=== PATIENT | male | born 1970 | race African-American/Black ===

== ENCOUNTER 2019-10-09 18:01 | Emergency (ER) | payer MEDICAID ==
[~2019-10-09] VITALS: Ht 182.9 cm; Wt 70.3 kg
[2019-10-09] MEDS ORDERED: MAG HYDROX/AL HYDROX/SIMETH 30 ML UDC ONE (18:58)
[2019-10-09] MEDS ORDERED: LIDOCAINE VISCOUS 2% UD 15 ML UDC ONE (18:58)
[2019-10-09] MEDS ORDERED: MAG HYDROX/AL HYDROX/SIMETH 30 ML UDC PO ONE (19:00)
[2019-10-09] MEDS ORDERED: LIDOCAINE VISCOUS 2% UD 15 ML UDC MM ONE (19:00)
--- NOTE | 2019-10-09 19:02 | NUR ---
PT AAOX4. BIBSELF C/O SOB SINCE 9:30 AM. 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 PT NANCY ANY CP, RR EVEN AND UNLABORED, NO ACUTE DISTRESS NOTED. WILL CONTINUE TO MONITOR.
[2019-10-09 19:10] LABS: BASOPHILS # (AUTO) 0.1 /CMM (0.0-0.2); BASOPHILS % (AUTO) 0.8 % (0.0-2.0); EOSINOPHILS % (AUTO) 1.2 % (0.0-6.0); HEMATOCRIT 44 % (39-51); HEMOGLOBIN 14.6 g/dL (13.5-17.5); LYMPHOCYTES # (AUTO) 1.3 /CMM (0.8-4.8); MEAN CORPUSCULAR HGB CONC 34 g/dl (31.0-36.0); MEAN CORPUSCULAR VOLUME 103 fL (80-96); MONOCYTES # (AUTO) 0.5 /CMM (0.1-1.30); MONOCYTES % (AUTO) 8.1 % (2.0-12.0); NEUTROPHILS # (AUTO) 4.6 /CMM (1.8-8.9); NEUTROPHILS % (AUTO) 69.9 % (43.0-81.0); PLATELET COUNT (AUTO) 238 /CMM (150-450); RED BLOOD CELL COUNT(AUTO) 4.22 MIL/uL (4.5-6.0); WHITE BLOOD COUNT (AUTO) 6.6 K/uL (4.3-11.0)
--- NOTE | 2019-10-09 19:12 | NUR ---
STRIPPER BLACK AND WHITE AT BEDSIDE FOR LABS
[2019-10-09 19:19] LABS: CARBON DIOXIDE 29 mmol/L (21-32); CHLORIDE 105 mmol/L (98-107); CREATININE 0.7 mg/dL (0.6-1.3); GLUCOSE 95 mg/dL (74-106); POTASSIUM 4.3 mmol/L (3.5-5.1); SODIUM SERUM 142 mmol/L (136-145); UREA NITROGEN, BLOOD 14 mg/dL (7-18)
[2019-10-09 19:24] LABS: CALCIUM, SERUM 9.4 mg/dL (8.5-10.1)
--- NOTE | 2019-10-09 19:48 | NUR ---
PER PA, WILL REPEAT TROP AT 2200.
--- NOTE | 2019-10-09 23:01 | NUR ---
IV removed. Catheter intact and site benign. Pressure and 4x4 applied to site. No bleeding noted.
[2019-10-09 23:05] VITALS: BP 128/72
--- NOTE | 2019-10-09 23:05 | NUR ---
Patient discharged to home in stable condition. Written and verbal after care instructions given. Patient verbalizes understanding of instruction. Pt ambulated with steady gait. vss.
== END 2019-10-09 23:07 | disposition home or self-care (01) ==
LOC: ER 18:06
DX: K29.70 Gastritis, unspecified, without bleeding (principal); Z20.828 Contact with and (suspected) exposure to other viral communicable diseases; R07.9 Chest pain, unspecified; Z87.19 Personal history of other diseases of the digestive system; R94.31 Abnormal electrocardiogram [ECG] [EKG]; R06.02 Shortness of breath
CPT/HCPCS: 36415; 71045; 80048; 84484 ×2; 85025; 85378; 93005 ×2; 99285; C9803; U0003

== ENCOUNTER 2020-02-02 15:33 | Emergency (ER) | payer MEDICAID ==
[~2020-02-02] VITALS: Ht 182.9 cm; Wt 66.7 kg
[2020-02-02 16:00] VITALS: BP 120/89
--- NOTE | 2020-02-02 16:28 | NUR ---
Patient discharged to home in stable condition. Written and verbal after care instructions given. Patient verbalizes understanding of instruction. Pt ambulatory with a steady gait
--- NOTE | 2020-02-02 16:28 | NUR ---
Marleni newton in EDM - 02/02/20 at 1628 by JOSE Patient discharged to home in stable condition. Written and verbal after care instructions given. Patient verbalizes understanding of instruction.(pt. name) ambulatory with a steady gait
== END 2020-02-02 16:39 | disposition home or self-care (01) ==
LOC: ER 15:48
DX: H66.92 Otitis media, unspecified, left ear (principal)

== ENCOUNTER 2020-11-04 23:48 | Emergency (ER) | payer OTHER ==
[~2020-11-04] VITALS: Ht 182.9 cm; Wt 70.3 kg
[2020-11-05 01:56] VITALS: BP 125/72
--- NOTE | 2020-11-05 01:56 | NUR ---
Patient discharged to home in stable condition. Written and verbal after care instructions given. Patient verbalizes understanding of instruction.
== END 2020-11-05 01:46 | disposition home or self-care (01) ==
LOC: ER 23:48
DX: R04.0 Epistaxis (principal)

== ENCOUNTER 2020-12-09 20:02 | Emergency (ER) | payer OTHER ==
[~2020-12-09] VITALS: Ht 182.9 cm; Wt 80.3 kg
--- NOTE | 2020-12-09 21:05 | NUR ---
BIBS FOR C/O WORSENING R HIP PAIN X 1 WEEK. +OCCASIONAL R FOOT NUMBNESS. AMBULATORY TO BED 11, ON MONITOR,.
[2020-12-09] MEDS ORDERED: IBUP-1957 PO (23:41)
[2020-12-09] MEDS ORDERED: CYCL5TAB PO (23:41)
--- NOTE | 2020-12-10 00:26 | NUR ---
PT IS MEDICALLY STABLE FOR D/C. Patient discharged to home in stable condition. Rx and Written and verbal after care instructions given. Patient verbalizes understanding of instruction.
[2020-12-10 00:29] VITALS: BP 129/84
== END 2020-12-10 00:30 | disposition home or self-care (01) ==
LOC: ER 20:04
DX: S76.011A Strain of muscle, fascia and tendon of right hip, initial encounter (principal); M54.41 Lumbago with sciatica, right side; Z79.899 Other long term (current) drug therapy; X58.XXXA Exposure to other specified factors, initial encounter; Y93.89 Activity, other specified; Y92.89 Other specified places as the place of occurrence of the external cause; Y99.8 Other external cause status
CPT/HCPCS: 72100-TC; 73502; 93971-TC

== ENCOUNTER 2021-06-07 13:33 | Emergency (ER) | payer OTHER ==
[~2021-06-07] VITALS: Ht 182.9 cm; Wt 70.3 kg
[~2021-06-07 13:33] MED LIST: CYCL5TAB PO; IBUP-1957 PO
--- NOTE | 2021-06-07 14:10 | NUR ---
DR CHILDS AT THE BEDSIDE
--- NOTE | 2021-06-07 14:13 | NUR ---
X-RAY AT THE BEDSIDE
--- NOTE | 2021-06-07 14:30 | NUR ---
US TECH AT THE BEDSIDE
--- NOTE | 2021-06-07 14:48 | NUR ---
Patient discharged to home in stable condition. Written and verbal after care instructions given. Patient verbalizes understanding of instruction.
[2021-06-07 14:49] VITALS: BP 121/72
== END 2021-06-07 14:50 | disposition home or self-care (01) ==
LOC: ER 13:37
DX: M77.11 Lateral epicondylitis, right elbow (principal); Z87.19 Personal history of other diseases of the digestive system; Z79.899 Other long term (current) drug therapy
CPT/HCPCS: 73080-TC; 93971-TC

== ENCOUNTER 2021-10-19 16:49 | Emergency (ER) | payer OTHER ==
[~2021-10-19] VITALS: Ht 185.4 cm; Wt 62.1 kg
--- NOTE | 2021-10-19 16:58 | NUR ---
called for triage not in the waiting room.
[2021-10-19 18:57] VITALS: BP 147/81
--- NOTE | 2021-10-19 19:00 | NUR ---
Patient discharged to home in stable condition. Written and verbal after care instructions given. Patient verbalizes understanding of instruction.
== END 2021-10-19 18:59 | disposition home or self-care (01) ==
LOC: ER 16:52
DX: M53.3 Sacrococcygeal disorders, not elsewhere classified (principal)

== ENCOUNTER 2023-05-15 17:34 | Emergency (ER) | payer OTHER ==
[~2023-05-15] VITALS: Ht 182.9 cm; Wt 68.5 kg
[2023-05-15 18:49] LABS: BASOPHILS % (AUTO) 0.5 % (0.0-2.0); EOSINOPHILS # (AUTO) 0.1 K/uL (0.0-0.7); EOSINOPHILS % (AUTO) 2.7 % (0.0-6.0); HEMATOCRIT 44 % (39-51); LYMPHOCYTES # (AUTO) 1.4 K/uL (0.8-4.8); LYMPHOCYTES % (AUTO) 27.7 % (20.0-44.0); MEAN CORPUSCULAR HEMOGLOBIN 34 PG (26.0-33.0); MEAN CORPUSCULAR HGB CONC 34 g/dl (31.0-36.0); MEAN CORPUSCULAR VOLUME 99 fL (80-96); MONOCYTES # (AUTO) 0.5 K/uL (0.1-1.30); MONOCYTES % (AUTO) 9.3 % (2.0-12.0); NEUTROPHILS % (AUTO) 59.8 % (43.0-81.0); PLATELET COUNT (AUTO) 261 K/uL (150-450); RED BLOOD CELL COUNT(AUTO) 4.45 MIL/uL (4.5-6.0); RED CELL DISTRIBUTION WIDTH 14.3 % (11.5-15.0); WHITE BLOOD COUNT (AUTO) 5.1 K/uL (4.3-11.0)
[2023-05-15 18:55] LABS: CARBON DIOXIDE 29 mmol/L (21-32); CHLORIDE 103 mmol/L (98-107); CREATININE 0.9 mg/dL (0.6-1.3); GLUCOSE 93 mg/dL (74-106); POTASSIUM 4.2 mmol/L (3.5-5.1); SODIUM SERUM 139 mmol/L (136-145); UREA NITROGEN, BLOOD 12 mg/dL (7-18)
[2023-05-15 19:01] LABS: ALANINE AMINOTRANSFERASE 13 U/L (12-78); ALBUMIN 3.7 g/dL (3.4-5.0); ALKALINE PHOSPHATASE 68 U/L (46-116); ASPARTATE AMINOTRANSFERASE 13 U/L (15-37); BILIRUBIN,DIRECT 0.1 mg/dL (0.0-0.2); BILIRUBIN,TOTAL 0.5 mg/dL (0.2-1.0)
[2023-05-15 19:44] LABS: APPEARANCE,URINE CLEAR (CLEAR); BILIRUBIN,URINE NEGATIVE (NEGATIVE); BLOOD, URINE NEGATIVE Ery/uL (NEGATIVE); COLOR,URINE YELLOW (YELLOW); KETONES,URINE NEGATIVE (NEGATIVE); LEUKOCYTE ESTERASE ,URINE NEGATIVE (NEGATIVE); NITRITE, URINE NEGATIVE (NEGATIVE); PROTEIN,URINE NEGATIVE (NEGATIVE); UGLUCOSE NEGATIVE (NEGATIVE); UROBILINOGEN,URINE 0.2 EU/dL (0.2)
[2023-05-15] MEDS ORDERED: MECL-159 PO (19:54)
[2023-05-15 20:19] VITALS: BP 129/72; TEMP 98.2; O2SAT 98
== END 2023-05-15 20:21 | disposition home or self-care (01) ==
LOC: ER 17:41
DX: R42 Dizziness and giddiness (principal)
CPT/HCPCS: 36415; 70450-TC; 71045-TC; 80048-TC; 80076-TC; 84484-TC; 85025-TC